=== PATIENT | male | born 1990 | race Caucasian/White ===

== ENCOUNTER 2022-12-09 20:03 | Emergency (ER) | payer SELFPAY ==
[2022-12-09] MEDS ORDERED: Boostrix 0.5 ML (Tdap) VIAL (>/=7 yrs of age) ONE (20:49)
[2022-12-09] MEDS ORDERED: Ibuprofen 200 MG TAB ONE (20:49)
[2022-12-09] MEDS ORDERED: Bacitracin 1 PK ONE (20:49)
== END 2022-12-09 20:50 | disposition home or self-care (01) ==
LOC: CSHERS 20:03
DX: S50.811A Abrasion of right forearm, initial encounter (principal); G43.909 Migraine, unspecified, not intractable, without status migrainosus; F17.210 Nicotine dependence, cigarettes, uncomplicated; X58.XXXA Exposure to other specified factors, initial encounter; Z23 Encounter for immunization
CPT/HCPCS: 90471; 90715; 99283